=== PATIENT | female | born 1995 | race Caucasian/White ===

== ENCOUNTER 2017-07-09 16:27 | Emergency (ER) | payer BC, OTHER ==
[~2017-07-09] VITALS: Ht 165.1 cm; Wt 58.5 kg
[~2017-07-09 16:27] MED LIST: Benadryl 50 mg50 MG PO; CEPH500 PO; DIPH50; ERYT.5TO LEFTEYE; HYDR1TAB94 PO; PRED10 PO; PRED20; Pepcid20 MG PO; Pepcid40 MG PO; Prednisone10 MG PO; Prednisone20 MG PO; Silvadene20 GM TOP; TRIA80TC
[2017-07-09] MEDS ORDERED: IBUP400 PO (16:36)
[2017-07-09 17:56] LABS: BASOPHILS ABSOLUTE AUTO 0.04 K/mm3 (0.00-0.23); BASOPHILS PERCENT AUTO 0 % (0-2); EOSINOPHILS ABSOLUTE AUTO 0.14 K/mm3 (0.00-0.68); EOSINOPHILS PERCENT AUTO 1 % (0-6); Hematocrit 40.5 % (33.0-51.0); Hemoglobin 13.5 g/dL (11.5-16.0); IMMATURE GRAN ABSOLUTE AUTO 0.05 K/mm3 (0.00-0.10); IMMATURE GRAN PERCENT AUTO 0 % (0-1); LYMPHOCYTES ABSOLUTE AUTO 2.46 K/mm3 (0.84-5.20); LYMPHOCYTES PERCENT AUTO 18 % (21-46); MONOCYTES ABSOLUTE AUTO 0.89 K/mm3 (0.16-1.47); MONOCYTES PERCENT AUTO 7 % (4-13); Mean Corpuscular HGB Conc 33.3 g/dL (31.5-36.5); Mean Corpuscular Volume 93 fL (80-100); Mean Platelet Volume 10.1 fL (9.1-12.4); NEUTROPHILS ABSOLUTE AUTO 10.08 K/mm3 (1.96-9.15); NEUTROPHILS PERCENT AUTO 74 % (41-73); Platelet Count 254 K/mm3 (150-400); RDW Coefficient Variation 12.8 % (11.7-14.2); RDW Standard Deviation 43.8 fL (35.1-46.3); Red Blood Cell Count 4.35 M/mm3 (3.80-5.20); White Blood Cell Count 13.66 K/mm3 (4.00-11.30)
[2017-07-09 18:33] LABS: Anion Gap 9 mmol/L (6-16); Blood Urea Nitrogen 10 mg/dL (8-24); Bun/Creatinine Ratio 14.5 (12.0-20.0); CO2, Blood 23 mmol/L (21-32); Calcium, Blood 9.2 mg/dL (8.5-10.1); Chloride, Blood 107 mmol/L (98-108); Creatinine, Blood 0.69 mg/dL (0.40-1.00); Glomerular Filtration Rate >60 (60-); Glucose, Blood 96 mg/dL (70-99); Potassium, Blood 3.8 mmol/L (3.5-5.5); Sodium, Blood 139 mmol/L (136-145)
[2017-07-09] MEDS ORDERED: Norco 5-325 Ta1 EACH PO (19:09)
[2017-07-09] MEDS ORDERED: Cleocin HCl300 MG PO (19:09)
== END 2017-07-09 19:36 | disposition home or self-care (01) ==
LOC: ER 16:27
PROVIDERS: Physician Assistant
DX: K04.7 Periapical abscess without sinus (principal); F17.210 Nicotine dependence, cigarettes, uncomplicated; Z90.89 Acquired absence of other organs
CPT/HCPCS: 36415; 70491; 80048; 85025; 96361; 96365; 96375; 99284; J1885; J2405; J7030; Q9967

== ENCOUNTER 2019-04-08 18:18 | Emergency (ER) | payer BC, OTHER ==
[~2019-04-08] VITALS: Ht 167.6 cm; Wt 56.7 kg
[~2019-04-08 18:18] MED LIST changes: +Cleocin HCl300 MG PO; +IBUP400 PO; +Norco 5-325 Ta1 EACH PO
[2019-04-08] MEDS ORDERED: Paxil20 MG PO (19:11)
[2019-04-08] MEDS ORDERED: Hydrocodone-Ap1 EA23 PO (19:49)
== END 2019-04-08 20:08 | disposition home or self-care (01) ==
LOC: ER 18:18
DX: S42.212A Unspecified displaced fracture of surgical neck of left humerus, initial encounter for closed fracture (principal); S22.42XA Multiple fractures of ribs, left side, initial encounter for closed fracture; V89.9XXA Person injured in unspecified vehicle accident, initial encounter; Z79.899 Other long term (current) drug therapy
CPT/HCPCS: 73030; 96372; 99283-25; A9270-GY; J1885

== ENCOUNTER → 2019-10-05 | Outpatient (CLI) | payer BC, OTHER ==
[~2019-10-05] MED LIST changes: +Hydrocodone-Ap1 EA23 PO; +Paxil20 MG PO
[2019-10-05 19:01] LABS: BASOPHILS ABSOLUTE AUTO 0.05 K/mm3 (0.00-0.23); BASOPHILS PERCENT AUTO 1 % (0-2); EOSINOPHILS PERCENT AUTO 1 % (0-6); Hematocrit 41.3 % (33.0-51.0); Hemoglobin 14.5 g/dL (11.5-16.0); IMMATURE GRAN ABSOLUTE AUTO 0.05 K/mm3 (0.00-0.10); IMMATURE GRAN PERCENT AUTO 1 % (0-1); LYMPHOCYTES ABSOLUTE AUTO 3.39 K/mm3 (0.84-5.20); LYMPHOCYTES PERCENT AUTO 31 % (21-46); MONOCYTES ABSOLUTE AUTO 0.66 K/mm3 (0.16-1.47); MONOCYTES PERCENT AUTO 6 % (4-13); Mean Corpuscular HGB 35.5 pg (26.0-34.0); Mean Corpuscular HGB Conc 35.1 g/dL (31.5-36.5); Mean Corpuscular Volume 101 fL (80-100); Mean Platelet Volume 9.6 fL (9.1-12.4); NEUTROPHILS ABSOLUTE AUTO 6.83 K/mm3 (1.96-9.15); NEUTROPHILS PERCENT AUTO 62 % (41-73); Platelet Count 437 K/mm3 (150-400); Red Blood Cell Count 4.09 M/mm3 (3.80-5.20); White Blood Cell Count 11.08 K/mm3 (4.00-11.30)
[2019-10-05 19:08] LABS: Anion Gap 17 mmol/L (6-16); Blood Urea Nitrogen 3 mg/dL (8-24); Bun/Creatinine Ratio 3.7 (12.0-20.0); CO2, Blood 24 mmol/L (21-32); Calcium, Blood 8.8 mg/dL (8.5-10.1); Chloride, Blood 102 mmol/L (98-108); Creatinine, Blood 0.82 mg/dL (0.40-1.00); Glomerular Filtration Rate >60 (60-); Glucose, Blood 80 mg/dL (70-99); Potassium, Blood 3.6 mmol/L (3.5-5.5); Sodium, Blood 143 mmol/L (136-145)
[2019-10-08 17:08] LABS: COMPLEMENT C4, SERUM 16 mg/dL (14-44)
[2019-10-09 17:09] LABS: RNP ANTIBODIES <0.2 AI (0.0-0.9); SJOGREN'S ANTI-SS-A <0.2 AI (0.0-0.9); SJOGREN'S ANTI-SS-B <0.2 AI (0.0-0.9); SMITH ANTIBODIES <0.2 AI (0.0-0.9)
[2019-10-10 06:09] LABS: ANTI-DSDNA ANTIBODIES <1 IU/mL (0-9); COMPLEMENT C3, SERUM 97 mg/dL (82-167)
== END | disposition home or self-care (01) ==
LOC: LAB EV 18:55 → LAB SHORT 18:55
PROVIDERS: Physician Assistant Surgical
DX: R21 Rash and other nonspecific skin eruption (principal)
CPT/HCPCS: 80048; 85025; 85651; 86038; 86140; 86160; 86225; 86235; 87081

== ENCOUNTER → 2019-10-10 | Outpatient (CLI) | payer BC, OTHER | LOC: LAB 13:30 → LAB SHORT 13:30 | DX: L24.9 Irritant contact dermatitis, unspecified cause (principal); L08.9 Local infection of the skin and subcutaneous tissue, unspecified | CPT/HCPCS: 87070; 87077; 87147; 87186; 87205 ==

== ENCOUNTER → 2019-10-14 | Outpatient (CLI) | payer BC, OTHER ==
[2019-10-14 14:08] LABS: BASOPHILS ABSOLUTE AUTO 0.01 K/mm3 (0.00-0.23); BASOPHILS PERCENT AUTO 0 % (0-2); EOSINOPHILS PERCENT AUTO 0 % (0-6); Hematocrit 43.2 % (33.0-51.0); Hemoglobin 14.9 g/dL (11.5-16.0); IMMATURE GRAN ABSOLUTE AUTO 0.06 K/mm3 (0.00-0.10); IMMATURE GRAN PERCENT AUTO 1 % (0-1); LYMPHOCYTES ABSOLUTE AUTO 0.87 K/mm3 (0.84-5.20); LYMPHOCYTES PERCENT AUTO 8 % (21-46); MONOCYTES ABSOLUTE AUTO 0.62 K/mm3 (0.16-1.47); MONOCYTES PERCENT AUTO 6 % (4-13); Mean Corpuscular HGB 35.1 pg (26.0-34.0); Mean Corpuscular HGB Conc 34.5 g/dL (31.5-36.5); Mean Corpuscular Volume 102 fL (80-100); Mean Platelet Volume 9.5 fL (9.1-12.4); NEUTROPHILS ABSOLUTE AUTO 9.52 K/mm3 (1.96-9.15); NEUTROPHILS PERCENT AUTO 86 % (41-73); Platelet Count 439 K/mm3 (150-400); RDW Coefficient Variation 15.9 % (11.7-14.2); RDW Standard Deviation 58.6 fL (35.1-46.3); Red Blood Cell Count 4.25 M/mm3 (3.80-5.20); White Blood Cell Count 11.08 K/mm3 (4.00-11.30)
== END | disposition home or self-care (01) ==
LOC: LAB EV 13:57 → LAB SHORT 13:57
PROVIDERS: Physician Assistant
DX: L56.4 Polymorphous light eruption (principal)
CPT/HCPCS: 85025; 87070; 87205

== ENCOUNTER 2019-10-15 12:47 | Emergency (ER) | payer BC, OTHER ==
[~2019-10-15] VITALS: Ht 177.8 cm; Wt 77.1 kg
[2019-10-15] MEDS ORDERED: Cleocin HCl300 MG PO (13:52)
== END 2019-10-15 14:14 | disposition home or self-care (01) ==
LOC: ER 12:47
DX: L03.114 Cellulitis of left upper limb (principal); L03.113 Cellulitis of right upper limb; L03.313 Cellulitis of chest wall; L03.312 Cellulitis of back [any part except buttock and flank]; B95.61 Methicillin susceptible Staphylococcus aureus infection as the cause of diseases classified elsewhere; F17.210 Nicotine dependence, cigarettes, uncomplicated; Z79.899 Other long term (current) drug therapy; Z88.1 Allergy status to other antibiotic agents
CPT/HCPCS: 99282

== ENCOUNTER 2020-07-09 19:05 | Emergency (ER) | payer BC, OTHER ==
[~2020-07-09] VITALS: Ht 165.1 cm; Wt 57.6 kg
[2020-07-09 20:09] LABS: BASOPHILS ABSOLUTE AUTO 0.04 K/mm3 (0.00-0.23); BASOPHILS PERCENT AUTO 1 % (0-2); EOSINOPHILS PERCENT AUTO 1 % (0-6); Hematocrit 39.4 % (33.0-51.0); Hemoglobin 13.5 g/dL (11.5-16.0); IMMATURE GRAN ABSOLUTE AUTO 0.02 K/mm3 (0.00-0.10); IMMATURE GRAN PERCENT AUTO 0 % (0-1); LYMPHOCYTES PERCENT AUTO 41 % (21-46); MONOCYTES ABSOLUTE AUTO 0.46 K/mm3 (0.16-1.47); MONOCYTES PERCENT AUTO 6 % (4-13); Mean Corpuscular HGB 35.5 pg (26.0-34.0); Mean Corpuscular HGB Conc 34.3 g/dL (31.5-36.5); Mean Corpuscular Volume 104 fL (80-100); Mean Platelet Volume 9.9 fL (9.1-12.4); NEUTROPHILS ABSOLUTE AUTO 3.68 K/mm3 (1.96-9.15); NEUTROPHILS PERCENT AUTO 50 % (41-73); Platelet Count 351 K/mm3 (150-400); RDW Coefficient Variation 14.9 % (11.7-14.2); RDW Standard Deviation 57.1 fL (35.1-46.3)
[2020-07-09 20:34] LABS: Alanine Aminotransfer (ALT/SGP 17 U/L (12-78); Albumin, Blood 3.8 g/dL (3.4-5.0); Albumin/Globulin Ratio 1.3 (0.8-1.8); Alk Phos 71 U/L (50-136); Anion Gap 7 mmol/L (6-16); Aspartate Aminotrans (AST/SGOT 13 U/L (12-37); Bilirubin, Total 0.4 mg/dL (0.1-1.0); Blood Urea Nitrogen 6 mg/dL (8-24); Bun/Creatinine Ratio 10.2 (12.0-20.0); CO2, Blood 25 mmol/L (21-32); Calcium, Blood 8.9 mg/dL (8.5-10.1); Chloride, Blood 105 mmol/L (98-108); Creatinine, Blood 0.59 mg/dL (0.40-1.00); Glomerular Filtration Rate >60 (60-); Glucose, Blood 81 mg/dL (70-99); Potassium, Blood 3.6 mmol/L (3.5-5.5); Sodium, Blood 137 mmol/L (136-145); Total Protein, Blood 6.8 g/dL (6.4-8.2)
[2020-07-09 21:00] LABS: Source, Urine Clean Catch
[2020-07-09 21:05] LABS: Bilirubin, Urine Neg (Neg); Blood, Urine Neg (Neg); Glucose Qualitative, Urine Neg (Neg); Ketones, Urine Neg (Neg); Leukocyte Esterase, Urine 2+ (Neg); Nitrite, Urine Neg (Neg); Protein, Urine Neg (Neg); Urobilinogen, Urine NORM (Normal)
[2020-07-09 21:06] LABS: Appearance, Urine Clear (Clear); Color, Urine Yellow (P-Yellow)
[2020-07-09 21:35] LABS: Bacteria Rare /hpf; Red Blood Cells, Urine Not Seen /hpf (0-2); Squamous Epithelial Cells Few /hpf (Few)
[2020-07-09] MEDS ORDERED: CEPH500 PO ×2 (23:45→23:47)
== END 2020-07-10 00:07 | disposition home or self-care (01) ==
LOC: ER 19:05
PROVIDERS: Physician Assistant
DX: N39.0 Urinary tract infection, site not specified (principal); F17.200 Nicotine dependence, unspecified, uncomplicated; Z91.048 Other nonmedicinal substance allergy status; Z79.899 Other long term (current) drug therapy
CPT/HCPCS: 36415; 76830; 76856; 80053; 81001; 81025; 85025; 86850; 86900; 86901; 87086; 99284-25; A9270

== ENCOUNTER → 2020-08-29 | Outpatient (CLI) | payer BC, OTHER ==
[~2020-08-29] MED LIST changes: +Clonazepam0.25 MG PO; +DULO30 PO; +GABA100 PO; +Inderal 20 mg T20 MG PO; +POTCHL20ER PO; +SARAFEM10 MG PO; +SULTRIDS PO
[2020-08-29 14:09] LABS: Alanine Aminotransfer (ALT/SGP 28 U/L (12-78); Albumin, Blood 3.9 g/dL (3.4-5.0); Albumin/Globulin Ratio 1.2 (0.8-1.8); Alk Phos 63 U/L (40-126); Anion Gap 11 mmol/L (6-16); Aspartate Aminotrans (AST/SGOT 21 U/L (12-37); Bilirubin, Total 0.7 mg/dL (0.1-1.0); Blood Urea Nitrogen 8 mg/dL (8-24); Bun/Creatinine Ratio 9.1 (12.0-20.0); CO2, Blood 25 mmol/L (21-32); Calcium, Blood 9.3 mg/dL (8.5-10.1); Chloride, Blood 105 mmol/L (98-108); Creatinine, Blood 0.88 mg/dL (0.40-1.00); Globulin, Blood 3.2 g/dL (2.2-4.0); Glomerular Filtration Rate >60 (60-); Glucose, Blood 94 mg/dL (70-99); Potassium, Blood 3.9 mmol/L (3.5-5.5); Sodium, Blood 141 mmol/L (136-145); Total Protein, Blood 7.1 g/dL (6.4-8.2)
== END | disposition home or self-care (01) ==
LOC: LAB SHORT 13:54 → LAB EV 13:54
PROVIDERS: Physician Assistant Surgical
DX: N39.0 Urinary tract infection, site not specified (principal); R20.2 Paresthesia of skin
CPT/HCPCS: 80053; 82607; 87086

== ENCOUNTER 2020-09-06 12:33 | Emergency (ER) | payer BC, OTHER ==
[~2020-09-06] VITALS: Ht 165.1 cm; Wt 51.7 kg
[~2020-09-06 12:33] MED LIST changes: -Clonazepam0.25 MG PO; -DULO30 PO; -GABA100 PO; -Inderal 20 mg T20 MG PO; -POTCHL20ER PO; -SARAFEM10 MG PO; -SULTRIDS PO
[2020-09-06] MEDS ORDERED: GABA100 PO (15:40)
== END 2020-09-06 15:45 | disposition home or self-care (01) ==
LOC: ER 12:33
DX: G62.9 Polyneuropathy, unspecified (principal); F17.210 Nicotine dependence, cigarettes, uncomplicated; Z91.048 Other nonmedicinal substance allergy status
CPT/HCPCS: 99282

== ENCOUNTER → 2020-09-09 | Outpatient (CLI) | payer BC, OTHER ==
[~2020-09-09] MED LIST changes: +GABA100 PO
[2020-09-09 13:06] LABS: Source, Urine Clean Catch
[2020-09-09 15:38] LABS: Appearance, Urine Hazy (Clear); Bilirubin, Urine Neg (Neg); Blood, Urine 2+ (Neg); Color, Urine Yellow (P-Yellow); Glucose Qualitative, Urine Neg (Neg); Ketones, Urine 1+ (Neg); Leukocyte Esterase, Urine 3+ (Neg); Nitrite, Urine Neg (Neg); Protein, Urine 2+ (Neg); Urobilinogen, Urine 1+ (Normal)
[2020-09-09 15:55] LABS: White Blood Cells, Urine TNTC /hpf (0-5)
[2020-09-09 16:04] LABS: Bacteria Mod /hpf; Calcium Oxalate Crystals Many /hpf; Mucus Light (0-Heavy); Squamous Epithelial Cells Mod /hpf (Few)
== END | disposition home or self-care (01) ==
LOC: LAB SHORT 13:05 → LAB 13:05
PROVIDERS: Family Medicine
DX: R30.9 Painful micturition, unspecified (principal)
CPT/HCPCS: 81001; 87086

== ENCOUNTER → 2020-09-17 | Outpatient (CLI) | payer BC, OTHER | END | disposition home or self-care (01) | LOC: LAB SHORT 12:30 | DX: R30.9 Painful micturition, unspecified (principal) | CPT/HCPCS: 87086 ==

== ENCOUNTER 2020-10-17 15:06 | Observation (INO) | payer BC, OTHER ==
[~2020-10-17] VITALS: Ht 165.1 cm; Wt 49.9 kg
[2020-10-17 15:59] LABS: BASOPHILS ABSOLUTE AUTO 0.03 K/mm3 (0.00-0.23); BASOPHILS PERCENT AUTO 0 % (0-2); EOSINOPHILS PERCENT AUTO 0 % (0-6); Hematocrit 42.4 % (33.0-51.0); Hemoglobin 14.6 g/dL (11.5-16.0); IMMATURE GRAN ABSOLUTE AUTO 0.03 K/mm3 (0.00-0.10); IMMATURE GRAN PERCENT AUTO 0 % (0-1); LYMPHOCYTES ABSOLUTE AUTO 1.47 K/mm3 (0.84-5.20); LYMPHOCYTES PERCENT AUTO 15 % (21-46); MONOCYTES ABSOLUTE AUTO 0.42 K/mm3 (0.16-1.47); MONOCYTES PERCENT AUTO 4 % (4-13); Mean Corpuscular HGB 34.4 pg (26.0-34.0); Mean Corpuscular HGB Conc 34.4 g/dL (31.5-36.5); Mean Corpuscular Volume 100 fL (80-100); Mean Platelet Volume 10.4 fL (9.1-12.4); NEUTROPHILS ABSOLUTE AUTO 7.76 K/mm3 (1.96-9.15); NEUTROPHILS PERCENT AUTO 80 % (41-73); Platelet Count 385 K/mm3 (150-400); RDW Standard Deviation 51.2 fL (35.1-46.3); Red Blood Cell Count 4.25 M/mm3 (3.80-5.20); White Blood Cell Count 9.71 K/mm3 (4.00-11.30)
[2020-10-17 16:18] LABS: Alanine Aminotransfer (ALT/SGP 16 U/L (12-78); Albumin, Blood 4.5 g/dL (3.4-5.0); Albumin/Globulin Ratio 1.4 (0.8-1.8); Alk Phos 61 U/L (50-136); Anion Gap 14 mmol/L (6-16); Aspartate Aminotrans (AST/SGOT 15 U/L (12-37); Bilirubin, Total 0.7 mg/dL (0.1-1.0); Blood Urea Nitrogen 9 mg/dL (8-24); Bun/Creatinine Ratio 13.4 (12.0-20.0); CO2, Blood 24 mmol/L (21-32); Calcium, Blood 10.1 mg/dL (8.5-10.1); Chloride, Blood 102 mmol/L (98-108); Creatinine, Blood 0.67 mg/dL (0.40-1.00); Globulin, Blood 3.2 g/dL (2.2-4.0); Glomerular Filtration Rate >60 (60-); Glucose, Blood 125 mg/dL (70-99); Potassium, Blood 3.1 mmol/L (3.5-5.5); Sodium, Blood 140 mmol/L (136-145); Total Protein, Blood 7.7 g/dL (6.4-8.2)
[2020-10-17] MEDS ORDERED: DULO30 PO (16:39)
[2020-10-17 17:31] LABS: Source, Urine Voided
[2020-10-17 17:36] LABS: Appearance, Urine Clear (Clear); Bilirubin, Urine Neg (Neg); Blood, Urine 4+ (Neg); Color, Urine Yellow (P-Yellow); Glucose Qualitative, Urine Neg (Neg); Ketones, Urine 4+ (Neg); Leukocyte Esterase, Urine 3+ (Neg); Nitrite, Urine Neg (Neg); Protein, Urine 2+ (Neg); Specific Gravity, Urine 1.025 (1.003-1.022); Urobilinogen, Urine NORM (Normal)
[2020-10-17 17:46] LABS: Bacteria Many /hpf; Red Blood Cells, Urine 0-2 /hpf (0-2); Squamous Epithelial Cells Mod /hpf (Few)
[2020-10-18 04:30] LABS: Anion Gap 12 mmol/L (6-16); Blood Urea Nitrogen 8 mg/dL (8-24); Bun/Creatinine Ratio 10.4 (12.0-20.0); CO2, Blood 21 mmol/L (21-32); Calcium, Blood 8.4 mg/dL (8.5-10.1); Chloride, Blood 107 mmol/L (98-108); Creatinine, Blood 0.77 mg/dL (0.40-1.00); Glomerular Filtration Rate >60 (60-); Glucose, Blood 77 mg/dL (70-99); Magnesium, Blood 2.3 mg/dL (1.6-2.4); Potassium, Blood 3.2 mmol/L (3.5-5.5); Sodium, Blood 140 mmol/L (136-145)
--- NOTE | 2020-10-18 05:14 | NUR ---
SHIFT SUMMARY PT ARRIVED TO THE UNIT AROUND 2100 AND WAS ABLE TO STAND AND TRANSFER TO BED WITH A WEAK GAIT AND STAND BY ASSIST. HX OF NEUROPATHY IN BLE CAUSING UNSTEADY GAIT, AND IMPAIRED FEELING. PT WAS ALERT, ORIENTED, AND COOPERATIVE WITH CARE. MILD FINE TREMORS NOTED IN BUE, PT STATES FROM NOT FEELING WELL. PT STATED HAVING NO NAUSEA AND DID NOT HAVE ANY VMOITING T/O THE SHIFT. PT HAD FREQUENT LOOSE BM'S. PT STATED FEELING BETTER T/O THE SHIFT AND GAIT BECAME MORE STEADY. PT ABLE TO WALK TO THE BATHROOM WITH MINIMAL ASSISTANCE. VITALS WERE STABLE WITH BP 120'S/70'S. HR 60-80'S, TELE SHOWED INVERTED T WAVES. HR UP TO 120-140'S WITH EXERTION OR AMBULATION TO BATHROOM. PT DENIED ANY CHEST PAIN. PT WAS EMACIATED AND STATED HAVING POOR NUTRITION, EATING ABOUT ONCE A DAY. PT HAD SCABS PRESENT ON BACKS OF HANDS, SHE WAS UNSURE WHERE THEY CAME FROM. PT ON ROOM AIR WITH O2 SATS >95%. PT WAS ANXIOUS AFTER MOTHER LEFT, PRN ATIVAN GIVEN AND PT ABLE TO SLEEP. ZOLL PADS IN PLACE ON PT FROM ER. PT HAD AN UNEVENTFUL NIGHT.
[2020-10-18 12:34] LABS: Alanine Aminotransfer (ALT/SGP 15 U/L (12-78); Albumin, Blood 3.7 g/dL (3.4-5.0); Albumin/Globulin Ratio 1.4 (0.8-1.8); Alk Phos 49 U/L (50-136); Anion Gap 8 mmol/L (6-16); Aspartate Aminotrans (AST/SGOT 14 U/L (12-37); Bilirubin, Total 0.5 mg/dL (0.1-1.0); Blood Urea Nitrogen 7 mg/dL (8-24); Bun/Creatinine Ratio 9.4 (12.0-20.0); C-REACTIVE PROTEIN, EXT RANGE <0.290 mg/dL (0.000-0.300); CO2, Blood 23 mmol/L (21-32); Calcium, Blood 8.8 mg/dL (8.5-10.1); Chloride, Blood 108 mmol/L (98-108); Creatinine, Blood 0.75 mg/dL (0.40-1.00); Ferritin, Serum 133 ng/mL (8-252); Globulin, Blood 2.6 g/dL (2.2-4.0); Glomerular Filtration Rate >60 (60-); Glucose, Blood 88 mg/dL (70-99); Iron Serum 74 ug/dL (50-170); Potassium, Blood 3.4 mmol/L (3.5-5.5); Sodium, Blood 139 mmol/L (136-145); Total Iron Binding Capacity 231 ug/dL (250-450); Total Protein, Blood 6.3 g/dL (6.4-8.2)
[2020-10-18 15:18] LABS: U Amphetamine Screen Not Detected; U Barbituate Screen Not Detected; U Benzodiazapine Screen DETECTED; U Buprenorphine Screen Not Detected; U Cannabinoids Screen DETECTED; U Cocaine Screen Not Detected; U Methadone Screen Not Detected; U Methamphetamine Screen Not Detected; U Opiates Screen Not Detected; U Oxycodone Screen Not Detected; U Phencyclidine Screen Not Detected; U Propoxyphene Screen Not Detected
--- NOTE | 2020-10-18 17:35 | NUR ---
SHIFT NOTE PT HAS BEEN INTERMITTENTLY ANXIOUS T/O THIS SHIFT. PT WAS TREATED WITH ATIVAN AND KLONIPIN FOR ANXIETY. WHEN MOTHER ARRIVED PT'S ANXIETY APPEARS TO HAVE GOTTEN WORSE, MOTHER DECIDED TO LEAVE SHE REALIZES THAT PT'S ANXIETY IS INCREASING WITH HER PRESENCE. PT THREATENING TO LEAVE AND ATTEMPTED TO REMOVE IV AND WAS VERBALLY REDIRECTED TO NOT REMOVE HER IV. PT STILL THREATENING TO LEAVE. PT WAS MOVED TO A ROOM WHERE SHE CAN BE OBSERVED ON CAMERA FOR HER SAFETY, PT IS NOTIFIED WHY SHE IS BEING MOVED AND AGREES THAT THIS IS A GOOD IDEA FOR HER OWN SAFETY.
--- NOTE | 2020-10-19 05:08 | NUR ---
SHIFT SUMMARY PATIENT FOUND TO AN ANXIOUS BUT PLEASANT LADY WHO IS A&OX4, CLEMONS, AND FOLLOWS COMMANDS. IS TEARFUL AT THE START OF SHIFT BUT MUCH MORE RELAXED AFTER NIGHT DOSE OF ANXIETY MEDS. VSS. SR ON THE MONITOR IN THE 70'S WITH PVC'S. ON RA. UP AD RUBIN TO BATHROOM WITHOUT ISSUE. VOIDING AND DRINKING WELL. NO ACUTE CONCERNS AT THIS TIME. WILL CONTINUE TO MONITOR.
[2020-10-19 08:26] LABS: Anion Gap 10 mmol/L (6-16); Blood Urea Nitrogen 5 mg/dL (8-24); Bun/Creatinine Ratio 6.7 (12.0-20.0); CO2, Blood 20 mmol/L (21-32); Calcium, Blood 8.7 mg/dL (8.5-10.1); Chloride, Blood 111 mmol/L (98-108); Creatinine, Blood 0.75 mg/dL (0.40-1.00); Glomerular Filtration Rate >60 (60-); Glucose, Blood 82 mg/dL (70-99); Potassium, Blood 3.4 mmol/L (3.5-5.5); Sodium, Blood 141 mmol/L (136-145)
--- NOTE | 2020-10-19 10:38 | NUR ---
MORNING UPDATE PT IS VERY TEARFUL THIS MORNING, SHE IS ANXIOUS TO GO HOME. RN ALLY SPENT SOME TIME TALKING WITH THE PT THIS MORNING HAVING A THERAPEUTIC CONVERSATION AND GIVING EMOTIONAL SUPPORT. PT VISITED WITH DR. PETERS THIS MORNING WHO ENCOURAGED HER TO FOLLOW UP OUTPATIENT AT THIS POINT. POSSIBLE DISCHARGE WILL BE DISCUSSED WITH DR. SPENCER TODAY.
[2020-10-19] MEDS ORDERED: Clonazepam0.25 MG PO (12:05)
[2020-10-19] MEDS ORDERED: SARAFEM10 MG PO (12:05)
[2020-10-19] MEDS ORDERED: POTCHL20ER PO (12:06)
[2020-10-19] MEDS ORDERED: SULTRIDS PO (12:09)
[2020-10-19] MEDS ORDERED: Inderal 20 mg T20 MG PO (12:09)
--- NOTE | 2020-10-19 14:46 | NUR ---
DISCHARGE PT WAS DISCHARGED AT APPROXMIATELY 1440 AND WAS ESCORTED OFF THE UNIT VIA WHEELCHAIR ACCOMPANIED BY [employer] AND PT'S MOTHER. PT WAS GIVEN INSTRUCTIONS TO FOLLOW UP OUTPATIENT WITH DR. PETERS AND DR. CARROLL WITHIN 1 WEEK OF DISCHARGE. PT WAS GIVEN EDUCATION REGARDING ALL NEW MEDICATIONS WELL RECOMMENDATIONS TO POSTPONE HEAVY ACTIVITY TO AVOID TACHYCARDIA, AND QUIT SMOKING. PT WAS GIVEN A PACKET OF COMMUNITY RESOURCES. PT WAS AGREEABLE TO DISCHARGE CRITERA AND WAS ASKED TO RETURN OUTPATIENT FOR FOLLOW UP LABS AND TO THE [facility] FOR A ZIO PATCH PLACEMENT. PT AGREED AND WAS DISCHARGED.
[2020-10-21 15:08] LABS: A/G RATIO 1.6 (0.7-1.7); ALBUMIN 3.6 g/dL (2.9-4.4); ALPHA-1-GLOBULIN 0.2 g/dL (0.0-0.4); ALPHA-2-GLOBULIN 0.7 g/dL (0.4-1.0); BETA GLOBULIN 0.7 g/dL (0.7-1.3); GAMMA GLOBULIN 0.6 g/dL (0.4-1.8); GLOBULIN, TOTAL 2.2 g/dL (2.2-3.9); M-SPIKE Not Observed g/dL (Not Observed); PROTEIN, TOTAL, SERUM 5.8 g/dL (6.0-8.5)
[2020-10-23 19:09] LABS: 25-HYDROXY, VITAMIN D 17 ng/mL (.); 25-HYDROXY, VITAMIN D-2 <1.0 ng/mL (.); 25-HYDROXY, VITAMIN D-3 17 ng/mL (.)
== END 2020-10-19 14:41 | disposition home or self-care (01) ==
LOC: ER 15:06 → PCU 15:07
PROVIDERS: Emergency Medicine; Internal Medicine; Physician Assistant; ADMIT Hospitalist
DX: I47.2 Ventricular tachycardia (principal); I49.3 Ventricular premature depolarization; R19.7 Diarrhea, unspecified; F41.1 Generalized anxiety disorder; N39.0 Urinary tract infection, site not specified; F43.10 Post-traumatic stress disorder, unspecified; L51.1 Stevens-Johnson syndrome; E87.6 Hypokalemia; F17.210 Nicotine dependence, cigarettes, uncomplicated
CPT/HCPCS: 36415; 80048; 80053; 81001; 82306; 82607; 82728; 82746; 83540; 83550; 83690; 83735; 84165; 84443; 84703; 85025; 85651; 86140; 87086; 93005; 93010; 93306; 96365; 96375; 96376; 99285-25; A9270; G0378; J2060; J2405; J3475; J3480; J7030; J7050

== ENCOUNTER 2020-11-06 20:09 | Emergency (ER) | payer BC, OTHER ==
[~2020-11-06] VITALS: Ht 165.1 cm; Wt 46.7 kg
[~2020-11-06 20:09] MED LIST changes: +Clonazepam0.25 MG PO; +DULO30 PO; +Inderal 20 mg T20 MG PO; +POTCHL20ER PO; +SARAFEM10 MG PO; +SULTRIDS PO
== END 2020-11-06 22:50 | disposition left against medical advice (07) ==
LOC: ER 20:09
DX: R00.0 Tachycardia, unspecified (principal); R06.02 Shortness of breath; Z53.21 Procedure and treatment not carried out due to patient leaving prior to being seen by health care provider
CPT/HCPCS: 99282

== ENCOUNTER → 2021-08-20 | Outpatient (CLI) | payer BC, OTHER ==
[2021-08-22 14:10] LABS: CHLAMYDIA BY NAA Negative (Negative); GONOCOCCUS BY NAA Negative (Negative); TRICH VAG BY NAA Negative (Negative)
== END | disposition home or self-care (01) ==
LOC: LAB SHORT 13:07 → LAB 13:07
PROVIDERS: Chiropractor
DX: R30.9 Painful micturition, unspecified (principal)
CPT/HCPCS: 87086; 87491; 87591; 87661

== ENCOUNTER 2021-12-13 19:09 | Emergency (ER) | payer BC, OTHER ==
[~2021-12-13] VITALS: Ht 165.1 cm; Wt 54.4 kg
[2021-12-13 20:16] LABS: BASOPHILS ABSOLUTE AUTO 0.07 K/mm3 (0.00-0.23); BASOPHILS PERCENT AUTO 1 % (0-2); EOSINOPHILS PERCENT AUTO 2 % (0-6); Hematocrit 45.1 % (33.0-51.0); Hemoglobin 15.1 g/dL (11.5-16.0); IMMATURE GRAN ABSOLUTE AUTO 0.06 K/mm3 (0.00-0.10); IMMATURE GRAN PERCENT AUTO 1 % (0-1); LYMPHOCYTES ABSOLUTE AUTO 3.89 K/mm3 (0.84-5.20); LYMPHOCYTES PERCENT AUTO 42 % (21-46); MONOCYTES ABSOLUTE AUTO 0.51 K/mm3 (0.16-1.47); MONOCYTES PERCENT AUTO 6 % (4-13); Mean Corpuscular HGB 33.3 pg (26.0-34.0); Mean Corpuscular HGB Conc 33.5 g/dL (31.5-36.5); Mean Corpuscular Volume 99 fL (80-100); Mean Platelet Volume 9.9 fL (9.1-12.4); NEUTROPHILS ABSOLUTE AUTO 4.56 K/mm3 (1.96-9.15); NEUTROPHILS PERCENT AUTO 49 % (41-73); Platelet Count 366 K/mm3 (150-400); RDW Coefficient Variation 12.2 % (11.7-14.2); RDW Standard Deviation 44.6 fL (35.1-46.3); Red Blood Cell Count 4.54 M/mm3 (3.80-5.20); White Blood Cell Count 9.29 K/mm3 (4.00-11.30)
[2021-12-13 20:34] LABS: Albumin, Blood 3.6 g/dL (3.4-5.0); Albumin/Globulin Ratio 1.1 (0.8-1.8); Bilirubin, Total 0.6 mg/dL (0.1-1.0); Bun/Creatinine Ratio 5.2 (12.0-20.0); Creatinine, Blood 0.76 mg/dL (0.40-1.00); Globulin, Blood 3.3 g/dL (2.2-4.0); Potassium, Blood 4.3 mmol/L (3.5-5.5); Total Protein, Blood 6.9 g/dL (6.4-8.2)
[2021-12-13 20:55] LABS: Source, Urine Clean Catch
[2021-12-13 20:58] LABS: Bilirubin, Urine Neg (Neg); Blood, Urine Neg (Neg); Glucose Qualitative, Urine Neg (Neg); Ketones, Urine Neg (Neg); Leukocyte Esterase, Urine Neg (Neg); Nitrite, Urine Neg (Neg); Protein, Urine Neg (Neg); Urobilinogen, Urine NORM (Normal)
[2021-12-13 21:16] LABS: Appearance, Urine Clear (Clear); Color, Urine Yellow (P-Yellow)
== END 2021-12-13 22:46 | disposition home or self-care (01) ==
LOC: ER 19:09
PROVIDERS: Physician Assistant
DX: R21 Rash and other nonspecific skin eruption (principal); F17.200 Nicotine dependence, unspecified, uncomplicated; Z79.899 Other long term (current) drug therapy
CPT/HCPCS: 36415; 80053; 81003; 81025; 83690; 85025; J2405; J7030; J7512

== ENCOUNTER → 2022-01-14 | Outpatient (CLI) | payer BC, OTHER | END | disposition home or self-care (01) | LOC: LAB SHORT 13:22 → PLD 13:22 | DX: D06.9 Carcinoma in situ of cervix, unspecified (principal) | CPT/HCPCS: 88305; 88342 ==

== ENCOUNTER → 2022-01-21 | Outpatient (CLI) | payer BC, OTHER | END | disposition home or self-care (01) | LOC: PLD 07:55 → LAB SHORT 07:55 | DX: N87.9 Dysplasia of cervix uteri, unspecified (principal) | CPT/HCPCS: 88307 ==

== ENCOUNTER 2022-05-28 09:56 | Emergency (ER) | payer OTHER ==
[~2022-05-28] VITALS: Ht 165.1 cm; Wt 59.9 kg
[2022-05-28 10:31] LABS: BASOPHILS ABSOLUTE AUTO 0.03 K/mm3 (0.00-0.23); BASOPHILS PERCENT AUTO 0 % (0-2); EOSINOPHILS ABSOLUTE AUTO 0.13 K/mm3 (0.00-0.68); EOSINOPHILS PERCENT AUTO 2 % (0-6); Hematocrit 40.6 % (33.0-51.0); Hemoglobin 14.1 g/dL (11.5-16.0); IMMATURE GRAN ABSOLUTE AUTO 0.04 K/mm3 (0.00-0.10); IMMATURE GRAN PERCENT AUTO 1 % (0-1); LYMPHOCYTES ABSOLUTE AUTO 2.64 K/mm3 (0.84-5.20); LYMPHOCYTES PERCENT AUTO 37 % (21-46); MONOCYTES ABSOLUTE AUTO 0.56 K/mm3 (0.16-1.47); MONOCYTES PERCENT AUTO 8 % (4-13); Mean Corpuscular HGB 33.7 pg (26.0-34.0); Mean Corpuscular HGB Conc 34.7 g/dL (31.5-36.5); Mean Corpuscular Volume 97 fL (80-100); Mean Platelet Volume 9.7 fL (9.1-12.4); NEUTROPHILS ABSOLUTE AUTO 3.66 K/mm3 (1.96-9.15); NEUTROPHILS PERCENT AUTO 52 % (41-73); Platelet Count 343 K/mm3 (150-400); RDW Coefficient Variation 13.1 % (11.7-14.2); RDW Standard Deviation 47.1 fL (35.1-46.3); Red Blood Cell Count 4.18 M/mm3 (3.80-5.20); White Blood Cell Count 7.06 K/mm3 (4.00-11.30)
[2022-05-28 11:04] LABS: Albumin, Blood 3.3 g/dL (3.4-5.0); Albumin/Globulin Ratio 0.8 (0.8-1.8); Bilirubin, Total 1.2 mg/dL (0.1-1.0); Bun/Creatinine Ratio 12.5 (12.0-20.0); Calcium, Blood 8.8 mg/dL (8.5-10.1); Creatinine, Blood 0.64 mg/dL (0.40-1.00); Globulin, Blood 3.9 g/dL (2.2-4.0); Potassium, Blood 4.3 mmol/L (3.5-5.5); Total Protein, Blood 7.2 g/dL (6.4-8.2)
[2022-05-28 12:13] LABS: Source, Urine Clean Catch
[2022-05-28 12:40] LABS: Appearance, Urine Clear (Clear); Bilirubin, Urine Neg (Neg); Blood, Urine Neg (Neg); Color, Urine Yellow (P-Yellow); Glucose Qualitative, Urine Neg (Neg); Ketones, Urine Neg (Neg); Leukocyte Esterase, Urine Neg (Neg); Nitrite, Urine Neg (Neg); Protein, Urine Neg (Neg); Specific Gravity, Urine 1.015 (1.003-1.022); Urobilinogen, Urine NORM (Normal)
[2022-05-30 00:09] LABS: CHLAMYDIA TRACHOMATIS, NAA Negative (Negative)
== END 2022-05-28 15:15 | disposition home or self-care (01) ==
LOC: ER 09:56
PROVIDERS: Emergency Medicine
DX: N76.0 Acute vaginitis (principal); F17.210 Nicotine dependence, cigarettes, uncomplicated; Z91.09 Other allergy status, other than to drugs and biological substances; Z79.899 Other long term (current) drug therapy
CPT/HCPCS: 80053; 81003; 83690; 84703; 85025; A9270; J0696; J7030

== ENCOUNTER 2022-06-25 09:23 | Emergency (ER) | payer OTHER ==
[~2022-06-25] VITALS: Ht 165.1 cm; Wt 59.0 kg
[2022-06-25 10:25] LABS: Source, Urine Clean Catch
[2022-06-25 10:29] LABS: Appearance, Urine Clear (Clear); Bilirubin, Urine Neg (Neg); Blood, Urine Neg (Neg); Color, Urine Yellow (P-Yellow); Glucose Qualitative, Urine Neg (Neg); Ketones, Urine 1+ (Neg); Leukocyte Esterase, Urine Neg (Neg); Nitrite, Urine Neg (Neg); Protein, Urine Neg (Neg); Specific Gravity, Urine 1.015 (1.003-1.022); Urobilinogen, Urine 1+ (Normal); pH, Urine 6.5 (5.0-8.0)
[2022-06-25 11:07] LABS: Influenza A, PCR NEGATIVE (NEGATIVE); Influenza B, PCR NEGATIVE (NEGATIVE); Resp Syncytial Virus, PCR NEGATIVE (NEGATIVE); SARS-Cov-2 (COVID-19) PCR, MMC NEGATIVE (NEGATIVE)
== END 2022-06-25 11:27 | disposition home or self-care (01) ==
LOC: ER 09:23
PROVIDERS: Emergency Medicine
DX: B34.9 Viral infection, unspecified (principal); F17.210 Nicotine dependence, cigarettes, uncomplicated; Z20.822 Contact with and (suspected) exposure to COVID-19
CPT/HCPCS: 0241U; 81003; 81025; 87430

== ENCOUNTER → 2022-08-27 | Outpatient (CLI) | payer OTHER ==
[2022-08-31 14:12] LABS: HPV 16 Negative (Negative); HPV 18 Negative (Negative); HPV OTHER HR TYPES Positive (Negative)
== END ==
LOC: LAB SHORT 16:53 → LAB 16:53
PROVIDERS: Obstetrics & Gynecology
DX: N87.0 Mild cervical dysplasia (principal)
CPT/HCPCS: 87624; 88175

== ENCOUNTER 2023-05-14 00:23 | Emergency (ER) | payer OTHER ==
[~2023-05-14] VITALS: Ht 165.1 cm; Wt 59.0 kg
[2023-05-14] MEDS ORDERED: Ibuprofen600 MG PO (01:59)
[2023-05-14] MEDS ORDERED: ACET500 PO (01:59)
[2023-05-14 02:30] VITALS: BP 103/65
== END 2023-05-14 02:50 | disposition home or self-care (01) ==
LOC: ER 00:23
DX: S83.015A Lateral dislocation of left patella, initial encounter (principal); S82.142A Displaced bicondylar fracture of left tibia, initial encounter for closed fracture; X50.1XXA Overexertion from prolonged static or awkward postures, initial encounter; Z88.8 Allergy status to other drugs, medicaments and biological substances; Z79.899 Other long term (current) drug therapy; F17.210 Nicotine dependence, cigarettes, uncomplicated
CPT/HCPCS: 27550; 73560-LT; 96374-59; 96375-59; 99284-25; J1885; J3010

== ENCOUNTER 2023-05-17 10:37 | Emergency (ER) | payer OTHER ==
[~2023-05-17] VITALS: Ht 165.1 cm; Wt 61.2 kg
[~2023-05-17 10:37] MED LIST changes: +ACET500 PO; +Ibuprofen600 MG PO
[2023-05-17 10:46] VITALS: BP 113/89
== END 2023-05-17 12:13 | disposition home or self-care (01) ==
LOC: ER 10:37
DX: M79.605 Pain in left leg (principal); R20.2 Paresthesia of skin; F17.210 Nicotine dependence, cigarettes, uncomplicated; Z88.8 Allergy status to other drugs, medicaments and biological substances; Z79.899 Other long term (current) drug therapy
CPT/HCPCS: 93926; 99283-25

== ENCOUNTER 2023-12-19 02:22 | Emergency (ER) | payer OTHER ==
[~2023-12-19] VITALS: Ht 170.2 cm; Wt 61.2 kg
[2023-12-19] MEDS ORDERED: Ketorolac Tromethamine 30mg Vial IV ONE (02:40)
[2023-12-19] MEDS ORDERED: Dexamethasone Sod Phos 10 MG/ML 1ML VIAL IV ONE (02:45)
[2023-12-19 03:45] VITALS: BP 113/69
[2023-12-19] MEDS ORDERED: NAPR500 PO (03:50)
[2023-12-19] MEDS ORDERED: LIDO700A20 TOP (03:50)
== END 2023-12-19 04:14 | disposition home or self-care (01) ==
LOC: ER 02:22
DX: R07.89 Other chest pain (principal); F17.210 Nicotine dependence, cigarettes, uncomplicated; Z79.899 Other long term (current) drug therapy; Z88.8 Allergy status to other drugs, medicaments and biological substances
CPT/HCPCS: 71046; 93005; 93010; 96374; 96375; 99285-25; J1100; J1885

== ENCOUNTER → 2024-12-22 | Outpatient (CLI) | payer OTHER ==
[~2024-12-22] MED LIST changes: +LIDO700A20 TOP; +NAPR500 PO
== END ==
LOC: LAB SHORT 16:41 → LAB 16:41
DX: S81.002D Unspecified open wound, left knee, subsequent encounter (principal)
CPT/HCPCS: 87070; 87075; 87205

== ENCOUNTER 2025-05-22 00:41 | Emergency (ER) | payer OTHER ==
[~2025-05-22] VITALS: Ht 167.6 cm; Wt 59.0 kg
[2025-05-22 00:48] VITALS: BP 121/87
[2025-05-22 01:23] LABS: Bilirubin, Urine Neg (Neg); Glucose Qualitative, Urine Neg (Neg); Ketones, Urine Neg (Neg); Leukocyte Esterase, Urine Neg (Neg); Protein, Urine Neg (Neg); Source, Urine Clean Catch; Specific Gravity, Urine 1.005 (1.003-1.022); Urobilinogen, Urine NORM (Normal)
[2025-05-22 01:34] LABS: BASOPHILS ABSOLUTE AUTO 0.05 K/mm3 (0.00-0.23); BASOPHILS PERCENT AUTO 1 % (0-2); EOSINOPHILS ABSOLUTE AUTO 0.16 K/mm3 (0.00-0.68); EOSINOPHILS PERCENT AUTO 2 % (0-6); Hematocrit 45.1 % (33.0-51.0); Hemoglobin 15.1 g/dL (11.5-16.0); IMMATURE GRAN ABSOLUTE AUTO 0.02 K/mm3 (0.00-0.10); IMMATURE GRAN PERCENT AUTO 0 % (0-1); LYMPHOCYTES ABSOLUTE AUTO 3.74 K/mm3 (0.84-5.20); LYMPHOCYTES PERCENT AUTO 41 % (21-46); MONOCYTES ABSOLUTE AUTO 0.62 K/mm3 (0.16-1.47); MONOCYTES PERCENT AUTO 7 % (4-13); Mean Corpuscular HGB Conc 33.5 g/dL (31.5-36.5); Mean Corpuscular Volume 99 fL (80-100); NEUTROPHILS ABSOLUTE AUTO 4.64 K/mm3 (1.96-9.15); NEUTROPHILS PERCENT AUTO 50 % (41-73); NRBC ABSOLUTE 0.00 K/mm3 (0.00-0.02); NRBC Auto 0.0 /100 WBC (0.0-0.2); Platelet Count 272 K/mm3 (150-400); RDW Coefficient Variation 13.6 % (11.7-14.2); RDW Standard Deviation 50.0 fL (35.1-46.3)
[2025-05-22 01:44] LABS: U Amphetamine Screen Not Detected; U Barbiturate Screen Not Detected; U Benzodiazapine Screen Not Detected; U Buprenorphine Screen Not Detected; U Cannabinoids Screen DETECTED; U Cocaine Screen Not Detected; U Methadone Screen Not Detected; U Methamphetamine Screen Not Detected; U Opiates Screen Not Detected; U Oxycodone Screen Not Detected; U Phencyclidine Screen Not Detected
[2025-05-22 01:52] LABS: Alanine Aminotransfer (ALT/SGP 18.0 U/L (12-78); Albumin, Blood 3.8 g/dL (3.4-5.0); Albumin/Globulin Ratio 1.2 (0.8-1.8); Anion Gap 11.0 mmol/L (3-11); Aspartate Aminotrans (AST/SGOT 19.0 U/L (12-37); Bilirubin, Total 0.4 mg/dL (0.1-1.0); Blood Urea Nitrogen 8.0 mg/dL (8-24); CO2, Blood 22.0 mmol/L (21-32); Calcium, Blood 8.7 mg/dL (8.5-10.1); Chloride, Blood 112.0 mmol/L (98-108); Creatinine, Blood 0.67 mg/dL (0.40-1.00); Ethanol (Alcohol), Blood, Med 253.0 mg/dL; Globulin, Blood 3.3 g/dL (2.2-4.0); Glucose, Blood 100.0 mg/dL (70-99); Potassium, Blood 4.0 mmol/L (3.5-5.5); Sodium, Blood 141.0 mmol/L (136-145); Total Protein, Blood 7.1 g/dL (6.4-8.2)
[2025-05-22 02:34] LABS: Color, Urine Yellow (P-Yellow)
== END 2025-05-22 03:32 | disposition home or self-care (01) ==
LOC: ER 00:41
PROVIDERS: Emergency Medicine
DX: R10.22 Pelvic and perineal pain left side (principal); F10.929 Alcohol use, unspecified with intoxication, unspecified; F17.210 Nicotine dependence, cigarettes, uncomplicated; Y90.8 Blood alcohol level of 240 mg/100 ml or more; Z91.048 Other nonmedicinal substance allergy status; Z79.899 Other long term (current) drug therapy
CPT/HCPCS: 76856; 80053; 80320; 81003; 81025; 85025; 99285-25